=== PATIENT | female | born 1970 | race Caucasian/White ===

== ENCOUNTER 2019-11-18 11:10 | Emergency (ER) | payer SELFPAY ==
[2019-11-18] VITALS (31 sets, daily range): BP systolic 117–137; BP diastolic 70–97; PULSE 63–100; RESP 10–18; TEMP 36.5–36.7; O2SAT 95–100
--- NOTE | 2019-11-18 11:37 | ED.GENADUL_ITS ---
Discharge Plan Disposition Patient Disposition: HOME Condition: Stable Discharge Details Chief Complaint: GenMedical Clinical Impression: History of Higinio's disease, Fatigue Primary Care Provider: Jaida,Local ED Provider: Tara Jacobs Home Meds and New Rx's Prescriptions: Continued prednisone 5 mg Tablet 5 mg PO DAILY RF: 0 levothyroxine 50 mcg Tablet 50 mcg PO DAILY RF: 0 hydrocortisone 10 mg Tablet 10 mg PO TID 30 Days Qty: 90 RF: 0 Discharge Instructions Instructions: Hydrocortisone (By mouth), Fatigue (ED) Additional Instructions: Take your steroids as directed. Call your regular doctor or student services rep to forward your prescription for hydrocortisone to continue as directed. Follow-up with your primary care doctor within the next 1 to 2 weeks for reevaluation. Return to the emergency department if you develop any worsening or new concerning symptoms. Discharge Data Discharge Physician: Tara Jacobs Medical Decision Making 1120 -- 49yo F with a history of Higinio's disease who presents with generalized fatigue, weakness and low energy over the past few weeks while she has been rationing her steroids. Vitals within normal limits. Patient appears nontoxic. Lungs clear. Abdomen nontender. No focal deficits on exam. Suspect presentation could mostly be due to corticosteroid deficiency in the setting of [place]'s disease, but will check screening labs, EKG and urinalysis to rule out any other acute process. A dose of 10 mg hydrocortisone ordered. 1330 -- Labs reviewed. Normal white blood cell count. Normal potassium and sodium. EKG notes a rate of 85, sinus with no acute ST ischemic changes. Urinalysis notes nitrite but unable to process micro. Will obtain a repeat urinalysis. 1410 --repeat urinalysis noted nitrates as well as 3-5 WBCs, but negative l eukocyte esterase. Urine sent for culture. As patient has no reported fever with normal white blood cell count, will hold on antibiotics at this time. Patient feels good to go home at this time. A call was placed to [facility] in [place]. [facility] has hydrocortisone available at this time. [facility] will have this available on Tuesday. Patient was given a prescription for her hydrocortisone. She was advised to call her primary care doctor and endocrinology to continue her hydrocortisone prescribing. Advised to return here with any concerns. Medical Records Medical records reviewed: Yes I reviewed the patient's medical records. Lab Data Lab results reviewed: Yes I reviewed the patient's lab results. Labs: 11/18/19 12:55 Urine - Clean Catch Urine Culture - Pending Laboratory Tests Range/Units 11/18/19 11/18/19 11/18/19 11:25 11:25 12:05 WBC (4.4-10.8) k/cumm 7.37 RBC (4.00-5.20) m/cumm 5.53 H Hgb (12.0-15.5) g/dL 15.9 H Hct (36.0-46.0) % 47.5 H MCV (80-95) fL 85.9 MCH (27.0-33.0) pg 28.8 MCHC (32.0-36.0) g/dL 33.5 RDW (11.7-14.6) % 13.7 Plt Count (130-400) x1000/uL 253 MPV (8.0-11.0) fL 11.7 H Immature Gran % % 0.1 Neutrophils % 84.3 Lymphocytes % 11.5 Monocytes % 3.7 Eosinophils % 0.1 Basophils % 0.3 Absolute Neutrophils (1.2-6.7) k/cumm 6.21 Absolute Lymphocytes (1.2-3.4) k/cumm 0.85 L Absolute Monocytes (0.11-0.7) k/cumm 0.27 Absolute Eosinophils (0.0-0.7) k/cumm 0.01 Absolute Basophils (0.0-0.2) k/cumm 0.02 Sodium (136-145) mmol/L 143 Potassium (3.5-5.1) mmol/L 3.5 Chloride (98-107) mmol/L 106 Carbon Dioxide (21.0-32.0) mmol/L 29.6 Anion Gap (3-11) mmol/L 7.4 BUN (7-18) mg/dL 19 H Creatinine (0.55-1.02) mg/dL 0.76 Estimated GFR/1.73 m2 (mL/min/1.73m2) >= 60.00 Glucose (74-106) mg/dL 81 Calcium (8.5-10.1) mg/dL 9.3 Magnesium (1.8-2.4) mg/dL 1.9 Total Bilirubin (0.2-1.0) mg/dL 0.5 AST (15-37) U/L 13 L ALT (14-59) U/L 23 Alkaline Phosphatase (46-116) U/L 53 Troponin I (<0.06) ng/Ml < 0.05 Total Protein (6.4-8.2) g/dL 7.6 Albumin (3.4-5.0) g/dL 4.5 Urine Color (Yellow) Yellow Urine Clarity (Clear) Cloudy Urine pH (5-8) 7.0 Ur Specific [place] (1.005-1.025) 1.025 Urine Protein (Negative) mg/dL Negative Urine Ketones (Negative) mg/dL Negative Urine Blood (Negative) Trace-intact H Urine Nitrite (Negative) Positive H Urine Bilirubin (Negative) Negative Urine Urobilinogen (Up TO 0.2) EU/dL 0.2 Ur Leukocyte Esterase (Negative) Negative Urine RBC Not Applicable Urine WBC Not Applicable Ur Epithelial Cells (Negative) HPF Moderate Urine Crystals Not Applicable Urine Bacteria (Negative) HPF Many Urine Mucus Not Applicable Ur Culture Indicated? No/sq. contamination Urine Glucose (Negative) mg/dL Negative Range/Units 11/18/19 12:55 WBC (4.4-10.8) k/cumm RBC (4.00-5.20) m/cumm Hgb (12.0-15.5) g/dL Hct (36.0-46.0) % MCV (80-95) fL MCH (27.0-33.0) pg MCHC (32.0-36.0) g/dL RDW (11.7-14.6) % Plt Count (130-400) x1000/uL MPV (8.0-11.0) fL Immature Gran % % Neutrophils % Lymphocytes % Monocytes % Eosinophils % Basophils % Absolute Neutrophils (1.2-6.7) k/cumm Absolute Lymphocytes (1.2-3.4) k/cumm Absolute Monocytes (0.11-0.7) k/cumm Absolute Eosinophils (0.0-0.7) k/cumm Absolute Basophils (0.0-0.2) k/cumm Sodium (136-145) mmol/L Potassium (3.5-5.1) mmol/L Chloride (98-107) mmol/L Carbon Dioxide (21.0-32.0) mmol/L Anion Gap (3-11) mmol/L BUN (7-18) mg/dL Creatinine (0.55-1.02) mg/dL Estimated GFR/1.73 m2 (mL/min/1.73m2) Glucose (74-106) mg/dL Calcium (8.5-10.1) mg/dL Magnesium (1.8-2.4) mg/dL Total Bilirubin (0.2-1.0) mg/dL AST (15-37) U/L ALT (14-59) U/L Alkaline Phosphatase (46-116) U/L Troponin I (<0.06) ng/Ml Total Protein (6.4-8.2) g/dL Albumin (3.4-5.0) g/dL Urine Color (Yellow) Yellow Urine Clarity (Clear) Sl cloudy Urine pH (5-8) 7.0 Ur Specific [place] (1.005-1.025) 1.025 Urine Protein (Negative) mg/dL Negative Urine Ketones (Negative) mg/dL Negative Urine Blood (Negative) Trace-intact H Urine Nitrite (Negative) Positive H Urine Bilirubin (Negative) Negative Urine Urobilinogen (Up TO 0.2) EU/dL 0.2 Ur Leukocyte Esterase (Negative) Negative Urine RBC 0-2 Urine WBC 3-5 Ur Epithelial Cells (Negative) HPF Moderate Urine Crystals Not Applicable Urine Bacteria (Negative) HPF Many Urine Mucus Not Applicable Ur Culture Indicated? C&s done as ordered Urine Glucose (Negative) mg/dL Negative ECG Data Attestation: I personally reviewed and interpreted this ECG (s) as follows: Interpretation: Rate of 85, sinus, no acute ST elevation or depression. TN 150. QTc 420. QRS 88. HPI General Mode of arrival: ambulatory . Date/Time Provider Initiated Documentation: 11/18/19 11:14 . Limitations to Documentation: no limitations . Information obtained by: patient . 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 She states her symptoms became worse today at work. 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 She states she moved from [place] 1 month ago and had multiple refills of her hydrocortisone. She states she attempted to refill this at [facility] but they did not have this available. Patient states she called her primary care doctor who called her in prednisone which she started 5 mg once daily 5 days ago. She denies any fever, chest pain, shortness of breath, cough, abdominal pain, vomiting, diarrhea or urinary symptoms. 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 Related Data Home Medications Medication Instructions Recorded Confirmed hydrocortisone 10 mg PO TID 30 Days #90 tab 11/18/19 levothyroxine 50 mcg PO DAILY 11/18/19 11/18/19 prednisone 5 mg PO DAILY 11/18/19 11/18/19 Previous Rx's Medication Instructions Recorded hydrocortisone 10 mg PO TID 30 Days #90 tab 11/18/19 Allergies Allergy/AdvReac Type Severity Reaction Status Date / Time No Known Allergies Allergy Unverified 11/18/19 11:20 General Stated Complaint: GenMedical RICK: 3 Review of Systems All systems reviewed & are unremarkable except as noted in HPI and below Constitutional Constitutional: Reports as per HPI, Denies chills and Denies fever(s) Eyes Eyes: Denies blurry vision ENT Ears, Nose, Mouth, and Throat: Denies dizziness, Denies sore throat and Denies throat swelling Cardiovascular Cardiovascular: Denies chest pain and Denies dyspnea Respiratory Respiratory: Denies cough and Denies dyspnea Gastrointestinal Gastrointestinal: Denies abdominal pain, Denies diarrhea and Denies vomiting Genitourinary Genitourinary: Denies hematuria and Denies dysuria Musculoskeletal Musculoskeletal: Denies back pain and Denies numbness Integumentary/Breasts Skin/Breast: Denies lesions and Denies rash Neurologic Neurologic: Denies dizziness, Denies localized weakness and Denies numbness Allergic/Immunologic Allergic/Immunologic: Denies throat swelling [facility] Medical History (Updated 11/18/19 @ 14:05 by Tara Jacobs DO) Addisons disease (Acute) Social History Smoking/Tobacco Use Status: Current every day Tobacco Type: cigarettes Years smoked: 27 Alcohol Intake: never Substance use type: does not use Do you feel safe at home: Yes Do you feel safe in your relationship?: Yes Course Vital Signs Vital signs: Vital Signs Temperature 97.7 F 11/18/19 11:14 Pulse 98 H 11/18/19 11:14 Respiratory Rate 18 11/18/19 11:14 Blood Pressure 137/97 H 11/18/19 11:14 Pulse Oximetry 99 11/18/19 11:14 Temperature 97.7 F 11/18/19 11:14 Temperature Source Temporal Artery Scan 11/18/19 11:14 Pulse 98 H 11/18/19 11:14 Respiratory Rate 18 11/18/19 11:14 Respiratory Effort 11/18/19 11:14 Respiratory Depth Normal 11/18/19 11:14 Respiratory Pattern Normal 11/18/19 11:14 Blood Pressure 137/97 H 11/18/19 11:14 Blood Pressure Position Supine 11/18/19 11:14 Pulse Oximetry 99 11/18/19 11:14 Oxygen Delivery Method Room Air 11/18/19 11:14 Oxygen Flow Rate 0 11/18/19 11:14 Pain Level 0 11/18/19 11:14
[2019-11-18 11:49] LABS: Abs Immature Grans 0.01 k/cumm (0.0-0.09); Absolute Basophil Count 0.02 k/cumm (0.0-0.2); Absolute Eosinophil Count 0.01 k/cumm (0.0-0.7); Absolute Lymphocyte Count 0.85 k/cumm (1.2-3.4); Absolute Monocyte Count 0.27 k/cumm (0.11-0.7); Absolute Neutrophil Count 6.21 k/cumm (1.2-6.7); Basophils % 0.3; Eosinophils % 0.1; HCT 47.5 % (36.0-46.0); HGB 15.9 g/dL (12.0-15.5); Immature Grans % 0.1 %; Lymphocytes % 11.5; Mean Corp. HGB Concentration 33.5 g/dL (32.0-36.0); Mean Corpuscular Hemoglobin 28.8 pg (27.0-33.0); Mean Corpuscular Volume 85.9 fL (80-95); Mean Platelet Volume 11.7 fL (8.0-11.0); Monocytes % 3.7; Neutrophils % 84.3; Platelet Count 253 x1000/uL (130-400); RBC 5.53 m/cumm (4.00-5.20); RBC Distribution Width 13.7 % (11.7-14.6); White Blood Cell Count 7.37 k/cumm (4.4-10.8)
[2019-11-18 12:07] LABS: ALT 23 U/L (14-59); AST 13 U/L (15-37); Albumin 4.5 g/dL (3.4-5.0); Alkaline Phosphatase 53 U/L (46-116); Anion Gap 7.4 mmol/L (3-11); BUN 19 mg/dL (7-18); Bilirubin, Total 0.5 mg/dL (0.2-1.0); CO2 29.6 mmol/L (21.0-32.0); CREATININE 0.76 mg/dL (0.55-1.02); Calcium 9.3 mg/dL (8.5-10.1); Chloride 106 mmol/L (98-107); Glucose 81 mg/dL (74-106); Magnesium 1.9 mg/dL (1.8-2.4); Potassium 3.5 mmol/L (3.5-5.1); Sodium 143 mmol/L (136-145); Total Protein 7.6 g/dL (6.4-8.2); Troponin I < 0.05 ng/Ml (<0.06)
[2019-11-18 12:11] LABS: Bilirubin Negative (Negative); Blood Trace-intact (Negative); Clarity Cloudy (Clear); Glucose Negative (Negative); Ketones Negative (Negative); Leukocyte Esterase Negative (Negative); Nitrite Positive (Negative); Specific Gravity 1.025 (1.005-1.025); Urobilinogen 0.2 EU/dL (Up TO 0.2)
[2019-11-18] MEDS: Hydrocortisone 10 MG TAB PO (12:12)
[2019-11-18] MEDS: Ketorolac 30 MG/ML VIAL IVP (12:14)
[2019-11-18] MEDS: Normal Saline Flush 10 ML SYR IVP (12:15)
[2019-11-18 12:21] LABS: Bacteria Many HPF (Negative); Epithelial Cells Moderate HPF (Negative)
[2019-11-18 12:22] LABS: C & S Indicated? No/Sq. Contamination
[2019-11-18] MEDS: Normal Saline 1,000 ML 1000 ML IV (12:59)
[2019-11-18 13:47] LABS: Bilirubin Negative (Negative); Blood Trace-intact (Negative); Clarity Sl Cloudy (Clear); Glucose Negative (Negative); Ketones Negative (Negative); Leukocyte Esterase Negative (Negative); Nitrite Positive (Negative); Specific Gravity 1.025 (1.005-1.025); Urobilinogen 0.2 EU/dL (Up TO 0.2)
--- NOTE | 2019-11-18 13:52 | NUR.NOTE ---
verbal handoof report given to Natalie Hernandez, RN Nursing Note:
[2019-11-18 13:54] LABS: Epithelial Cells Moderate HPF (Negative); RBC 0-2 HPF (0-2)
[2019-11-18 13:55] LABS: Bacteria Many HPF (Negative); C & S Indicated? C&S Done As Ordered
--- NOTE | 2019-11-23 10:33 | ED.FU.B_ITS ---
Urine culture noted greater than 100,000 E. coli on 11/18/2019. On 11/18/2019, a prescription for Bactrim was called into [facility] pharmacy. Patient was notified of this plan. She stated she had felt better after resuming the hydrocortisone. She denies any fever or urinary symptoms. She was advised to follow-up with her primary care doctor or return to the emergency department with any new or worsening symptoms.
== END 2019-11-18 14:32 | disposition home or self-care (01) ==
PROVIDERS: Emergency Provider Physician Assistant
DX: R53.83 Other fatigue (principal); E27.1 Primary adrenocortical insufficiency; T38.0X6A Underdosing of glucocorticoids and synthetic analogues, initial encounter; Z91.138 Patient's unintentional underdosing of medication regimen for other reason; Z79.52 Long term (current) use of systemic steroids
CPT/HCPCS: 36415; 80053; 87077; 93005; 96361; 96374; 99284; 81003; 81015; 83735; 84484; 85025; 87086; 87186; 93010; 99281; J1885